=== PATIENT | female | born 1985 | race African-American/Black ===

== ENCOUNTER 2023-12-15 02:43 | Emergency (ER) | payer MEDICAID ==
[~2023-12-15] VITALS: Ht 165.1 cm; Wt 93.0 kg
[2023-12-15 02:45] VITALS: TEMP 98.2
[2023-12-15] MEDS: ALBUTEROL (0.083%) 2.5MG/3ML NEB HHN STA (03:44)
[2023-12-15 03:45] VITALS: PULSE 122; RESP 18; O2SAT 98
[2023-12-15] MEDS: IPRATROPIUM BROMIDE (0.02%) 0.5MG/2.5ML NEB HHN STA (03:45)
[2023-12-15] MEDS ORDERED: P20 MT (04:45)
[2023-12-15] MEDS ORDERED: ALBU6.7H15 INH (04:45)
[2023-12-15 08:03] VITALS: BP 147/79; PULSE 99; RESP 18
== END 2023-12-15 08:05 | disposition home or self-care (01) ==
LOC: ER 02:43
DX: J45.901 Unspecified asthma with (acute) exacerbation (principal)
CPT/HCPCS: 94640; 99283; Z7610

== ENCOUNTER 2024-01-20 03:12 | Emergency (ER) | payer MEDICAID ==
[~2024-01-20] VITALS: Ht 170.2 cm; Wt 118.0 kg
[~2024-01-20 03:12] MED LIST: ALBU6.7H15 INH; P20 MT
[2024-01-20] MEDS: METHYLPREDNISOLONE SOD SUCC 125MG/2ML (ACT-O-VIAL) IV STA (04:25)
[2024-01-20] MEDS: ALBUTEROL (0.083%) 2.5MG/3ML NEB HHN STA (04:48)
[2024-01-20 04:49] VITALS: PULSE 96; RESP 21; O2SAT 96
[2024-01-20] MEDS: IPRATROPIUM BROMIDE (0.02%) 0.5MG/2.5ML NEB HHN STA (04:49)
[2024-01-20] MEDS: GUAIFENESIN 600MG ER TABLET PO ONE (05:32)
[2024-01-20 05:40] VITALS: BP 162/84; PULSE 109; RESP 21; TEMP 98.6
== END 2024-01-20 05:36 | disposition home or self-care (01) ==
LOC: ER 03:12
DX: J45.901 Unspecified asthma with (acute) exacerbation (principal); I10 Essential (primary) hypertension
CPT/HCPCS: 94640; 96374; 99283; J2930; Z7610 ×4